=== PATIENT | female | born 1990 | race Caucasian/White ===

== ENCOUNTER → 2018-01-24 | Outpatient (CLI) | payer OTHER ==
--- NOTE | 2018-01-24 13:12 | RAD ---
THYROID ULTRASOUND History: Hypothyroid. Comparison: None. Technique: Multiple grayscale and color Doppler images of the thyroid gland were obtained. Findings: Measurements in length, AP (height), and transverse (width), respectively, unless otherwise stated. Right thyroid lobe measures 6 x 1.7 x 1.8. Left thyroid lobe measures 5.8 x 1.5 x 1.8 cm. The isthmus measures 6 mm. Thyroid gland is mildly heterogeneous. Color Doppler demonstrates increased blood flow. There is a 4 mm hypoechoic solid nodule in the inferior right thyroid lobe. ACR Thyroid Imaging, Reporting And Data System (TI-RADS): White Paper Of The ACR TI-RADS Committee. Journal of the [employer], volume 14, issue 5, pages 587-595 (October 2016). IMPRESSION: The thyroid gland is enlarged and hypervascular. Nonspecific thyroiditis could produce this appearance. Electronically signed by: Ervin Velasco MD (01/24/2018 1:08 PM) [id number]
== END | disposition home or self-care (01) ==
LOC: US 07:51
PROVIDERS: ATTEND Neuromusculoskeletal Medicine & OMM
DX: E04.9 Nontoxic goiter, unspecified (principal)
CPT/HCPCS: 76536